=== PATIENT | male | born 1975 | race Caucasian/White ===

== ENCOUNTER 2018-06-14 00:35 | Emergency (ER) | payer OTHER ==
[~2018-06-14] VITALS: Ht 182.9 cm; Wt 117.9 kg
--- NOTE | 2018-06-14 00:37 | NUR ---
PT [facility] BLS. TAKEN TO BED 5
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
--- NOTE | 2018-06-14 00:56 | NUR ---
PT TAKEN TO CT
[2018-06-14] MEDS ORDERED: GABA300C GT (01:10)
[2018-06-14] MEDS ORDERED: NYST100022 PO (01:10)
[2018-06-14] MEDS ORDERED: LEVEMIR SUBQ (01:10)
[2018-06-14] MEDS ORDERED: ONDA4TAB GT (01:10)
[2018-06-14] MEDS ORDERED: PANT40EC GT (01:10)
[2018-06-14] MEDS ORDERED: ASCO500T93 GT (01:10)
[2018-06-14] MEDS ORDERED: METH500T14 GT (01:10)
[2018-06-14] MEDS ORDERED: SLIDE SUBQ (01:10)
[2018-06-14] MEDS ORDERED: OXYC5TAB4 PO (01:10)
[2018-06-14] MEDS ORDERED: LOV40I SUBQ (01:10)
[2018-06-14] MEDS ORDERED: MULT-1640 GT (01:10)
--- NOTE | 2018-06-14 01:11 | NUR ---
PT RETURN FROM CT
--- NOTE | 2018-06-14 01:38 | NUR ---
Dr. Lopez evaluating patient at bedside.
--- NOTE | 2018-06-14 01:45 | NUR ---
EMT AT BEDSIDE CLEANING DRIED BLOOD AROUND PT'S HEAD; C-COLLAR LEFT IN PLACE PER ER MD.
--- NOTE | 2018-06-14 02:45 | NUR ---
SPOKE WITH HAPPY AT [facility], EXPLAINED PT WAS BEING D/C AND BEING TAKEN BACK TO FACILITY
[2018-06-14 03:14] VITALS: BP 108/62
--- NOTE | 2018-06-14 03:14 | NUR ---
Patient discharged with v/s stable. Written and verbal after care instructions given and explained. Patient verbalized understanding. Pt transported by [facility] via stretcher to [facility]. All questions addressed prior to discharge. Advised to follow up with PMD.
== END 2018-06-14 03:14 | disposition home or self-care (01) ==
LOC: MED 00:35
DX: S01.01XA Laceration without foreign body of scalp, initial encounter (principal); Z79.4 Long term (current) use of insulin; Z79.891 Long term (current) use of opiate analgesic; Z79.899 Other long term (current) drug therapy; Z93.1 Gastrostomy status; X58.XXXA Exposure to other specified factors, initial encounter; Y93.89 Activity, other specified; Y92.89 Other specified places as the place of occurrence of the external cause; Y99.8 Other external cause status
CPT/HCPCS: 70450; 99284